=== PATIENT | female | born 1990 | race Caucasian/White ===

== ENCOUNTER 2018-06-11 15:46 | Emergency (ER) | payer OTHER ==
[~2018-06-11] VITALS: Ht 162.6 cm; Wt 90.9 kg
[2018-06-11 16:20] VITALS: BP 127/76; Ht 162.6 cm; Wt 90.9 kg
[2018-06-11] MEDS ORDERED: PENICILLIN V P500 MG PO (17:43)
[2018-06-11] MEDS ORDERED: NORCO 7.5/325 T1 TA1 PO (17:43)
== END 2018-06-11 18:08 | disposition home or self-care (01) ==
LOC: D.ER 15:46
DX: K02.9 Dental caries, unspecified (principal); F17.200 Nicotine dependence, unspecified, uncomplicated